=== PATIENT | male | born 1945 | race Caucasian/White ===

== ENCOUNTER 2018-08-23 16:33 | Emergency (ER) | payer OTHER | END 2018-08-23 17:54 | disposition home or self-care (01) | LOC: FER 16:33 ==

== ENCOUNTER 2018-09-02 08:02 | Emergency (ER) | payer OTHER ==
--- NOTE | 2018-09-02 08:07 | PDOC ---
Suture Removal/Wound Check HPI - History of Present Illness Chief Complaint: Suture/Staple Removal(Here) Stated Complaint: SUTURE REMOVAL Time Seen by Provider: 09/02/18 08:05 History Source: Yes: Patient Exam Limitations: Yes: No Limitations Treated at: [facility] Date of Last ED visit: 08/23/18 - Previous ED Treatment Type of procedure performed on last visit: Yes: Laceration Repair Tetanus Immunization: Yes: Given at last ED visit Antibiotics Prescribed: No - Onset of Previous Treatment Date of Occurence: 08/23/18 Comment:: 09/02/18 08:08 72y M hx of htn had L thumb laceration s/p repair on 08/23. no current complaints. here for suture removal. tetanus updated last visit exam: on exam pts laceration is c/d/i, non erythemadous, no discahrge, healing well lacerations removed bandaid placed wound/laceration care instructions given Past History - Past Medical History Allergies/Adverse Reactions: Allergies Allergy/AdvReac Type Severity Reaction Status Date / Time No Known Drug Allergies Allergy Verified 09/02/18 08:03 Home Medications: Ambulatory Orders Allopurinol [Zyloprim] 100 mg PO DAILY 08/01/12 Aspirin [ASA] 81 mg PO ASDIR 08/01/12 Simvastatin [Zocor] 40 mg PO ASDIR 08/01/12 cloNIDine HCL [Catapress] 0.2 mg PO DAILY 08/01/12 Anemia: No Asthma: No Cancer: No Cardiac Disorders: No CVA: No COPD: No CHF: No Dementia: No Diabetes: No GI Disorders: No Disorders: No HTN: Yes Hypercholesterolemia: Yes Liver Disease: No Seizures: No Thyroid Disease: No - Surgical History Abdominal Surgery: No Appendectomy: Yes (1953) Cardiac Surgery: No Cholecystectomy: No Lung Surgery: No Neurologic Surgery: No Orthopedic Surgery: Yes (RIGHT ELBOW CYST REMOVED,RIGHT HAND GROWTH REMOVED) - Immunization History Immunization Up to Date: No - Suicide/Smoking/Psychosocial Hx Smoking History: Never smoked Have you smoked in the past 12 months: No Hx Alcohol Use: Yes (SOCIALLY) Drug/Substance Use Hx: No Substance Use Type: Alcohol Hx Substance Use Treatment: No *DC/Admit/Observation/Transfer Diagnosis at time of Disposition: Visit for suture removal - Discharge Dispostion Disposition: HOME Condition at time of disposition: Improved Decision to Admit order: No - Referrals Referrals: Davide Flores MD [Staff Physician] - - Patient Instructions Printed Discharge Instructions: DI for Suture Removal Additional Instructions: Keep the area clean. Apply bacitracin. Be careful not to apply tension to the wound as the wound is still not at full integrity. Return to the ER if there is any redness/increased pain,swelling, or other concerns. - Post Discharge Activity
[2018-09-02 08:11] VITALS: BP 194/108; PULSE 93; TEMP 98.6; BMI 23.5
== END 2018-09-02 08:34 | disposition home or self-care (01) ==
LOC: FER 08:02
DX: Z48.02 Encounter for removal of sutures (principal)
CPT/HCPCS: 99281-25

== ENCOUNTER 2022-01-21 04:40 | Day surgery (SDC) | payer OTHER ==
[2022-01-19 13:54] VITALS: BMI 22.6
[2022-01-21] MEDS ORDERED: KETAMINE HCL 500 MG/10 ML VIAL ONE (07:18)
[2022-01-21 08:18] VITALS: TEMP 97
[2022-01-21 08:45] VITALS: RESP 18
[2022-01-21 09:30] VITALS: BP 164/62; PULSE 60
== END 2022-01-21 09:54 | disposition home or self-care (01) ==
LOC: JASU-ENDO 04:40
PROVIDERS: ATTEND Internal Medicine Gastroenterology
PROC: 0DB78ZX Excision of Stomach, Pylorus, Via Natural or Artificial Opening Endoscopic, Diagnostic (ICD-10-PCS; 2022-01-21)
PROC: 0DJD8ZZ Inspection of Lower Intestinal Tract, Via Natural or Artificial Opening Endoscopic (ICD-10-PCS; principal; 2022-01-21 08:00)
DX: Z12.11 Encounter for screening for malignant neoplasm of colon (principal); K29.50 Unspecified chronic gastritis without bleeding; K64.8 Other hemorrhoids; Z86.010 Personal history of colon polyps
CPT/HCPCS: 43239; G0105; 88305-TC; 88342-TC